=== PATIENT | male | born 1990 | race Caucasian/White ===

== ENCOUNTER 2018-09-14 20:18 | Emergency (ER) | payer MEDICAID ==
[~2018-09-14] VITALS: Ht 177.8 cm; Wt 130.6 kg
[2018-09-14 20:22] VITALS: Ht 177.8 cm; Wt 130.6 kg
[2018-09-14 21:55] VITALS: BP 132/102
== END 2018-09-14 21:55 | disposition home or self-care (01) ==
LOC: ED 20:18
DX: S61.217A Laceration without foreign body of left little finger without damage to nail, initial encounter (principal); Z90.89 Acquired absence of other organs; W26.0XXA Contact with knife, initial encounter; Y93.89 Activity, other specified; Y92.89 Other specified places as the place of occurrence of the external cause; Y99.8 Other external cause status
CPT/HCPCS: 90715; A4570

== ENCOUNTER 2018-09-16 14:17 | Emergency (ER) | payer MEDICAID ==
[~2018-09-16] VITALS: Ht 177.8 cm; Wt 132.9 kg
[2018-09-16 14:25] VITALS: Ht 177.8 cm; Wt 132.9 kg
[2018-09-16 17:35] VITALS: BP 119/71
== END 2018-09-16 17:35 | disposition home or self-care (01) ==
LOC: ED 14:17
DX: S61.217D Laceration without foreign body of left little finger without damage to nail, subsequent encounter (principal); Z90.89 Acquired absence of other organs; W26.8XXD Contact with other sharp object(s), not elsewhere classified, subsequent encounter

== ENCOUNTER 2018-09-23 13:02 | Emergency (ER) | payer MEDICAID ==
[~2018-09-23] VITALS: Ht 177.8 cm; Wt 135.2 kg
[2018-09-23 13:12] VITALS: BP 135/73; Ht 177.8 cm; Wt 135.2 kg
== END 2018-09-23 13:49 | disposition home or self-care (01) ==
LOC: ED 13:02
DX: S61.217D Laceration without foreign body of left little finger without damage to nail, subsequent encounter (principal); X58.XXXD Exposure to other specified factors, subsequent encounter

== ENCOUNTER 2018-09-26 12:55 | Emergency (ER) | payer MEDICAID ==
[~2018-09-26] VITALS: Ht 177.8 cm; Wt 132.0 kg
[2018-09-26 13:04] VITALS: BP 126/74; Ht 177.8 cm; Wt 132.0 kg
== END 2018-09-26 14:00 | disposition home or self-care (01) ==
LOC: ED 12:55
DX: S61.216D Laceration without foreign body of right little finger without damage to nail, subsequent encounter (principal); Z90.89 Acquired absence of other organs; Z98.890 Other specified postprocedural states; X58.XXXD Exposure to other specified factors, subsequent encounter